=== PATIENT | female | born 1980 | race Caucasian/White ===

== ENCOUNTER 2019-06-11 11:04 | Emergency (ER) | payer MEDICARE ==
[~2019-06-11] VITALS: Ht 157.5 cm; Wt 47.8 kg
[~2019-06-11 11:04] MED LIST: ALBU.083IS IH; ALBU90OI61 INH; ARIP10 PO; Amoxicillin500 MG PO; BUPR150ER PO; CLON.5; Cymbalta30 MG PO; Cymbalta60 MG PO; FLUO20 PO; Hydroxyzine HCl50 MG PO; IBUP600 PO; IBUP800 PO; INSR10I SC; INSULANI SC; INSULANPEN SC; MELO7.5 PO; METF500 PO; NYST237S MT; Naprosyn500 MG PO; Neurontin 300300 MG PO; Norco 5-325 Ta1 EACH PO; PREG25 PO; PREG50; REGULAR INSULIN SS; Tylenol325 MG PO; [UNRECOGNIZED DRUG - OTHER] MC
[2019-06-11] MEDS ORDERED: BASAGLAR K100 UNIT/1 SC ×2 (12:16→12:21)
[2019-06-11] MEDS ORDERED: Cymbalta60 MG PO (12:21)
[2019-06-11] MEDS ORDERED: PREG25 PO (12:21)
[2019-06-11] MEDS ORDERED: IBUP600 PO (12:23)
[2019-06-11] MEDS ORDERED: Ultram50 MG PO (12:23)
== END 2019-06-11 12:34 | disposition home or self-care (01) ==
LOC: ER 11:04
DX: M25.552 Pain in left hip (principal); G89.29 Other chronic pain; Z76.0 Encounter for issue of repeat prescription; Z88.6 Allergy status to analgesic agent; E11.40 Type 2 diabetes mellitus with diabetic neuropathy, unspecified; J44.9 Chronic obstructive pulmonary disease, unspecified; Z87.891 Personal history of nicotine dependence; Z98.890 Other specified postprocedural states; Z87.81 Personal history of (healed) traumatic fracture
CPT/HCPCS: 73502; 96372; 99283-25; J1885